=== PATIENT | male | born 1930 | race Caucasian/White ===

== ENCOUNTER 2017-04-18 21:53 | Emergency (ER) | payer MEDICARE, OTHER ==
[~2017-04-18] VITALS: Ht 165.1 cm; Wt 75.0 kg
[~2017-04-18 21:53] MED LIST: AMLO10TA3 PO; ATOR40TA69 PO; CAYE450C4 PO; CHOL10008 PO; DABI150C PO; DICL1ADH6 TD; DOXY100T2 PO; FURO-128 PO; HYDR-4003 PO; LEVO75TA4 PO; MULT-666 PO; NITR0.4T6 SL; OMEG-38 PO; POTA20TA16 PO
[2017-04-18 22:03] VITALS: BP 152/70; PULSE 70; RESP 17; O2SAT 98
[2017-04-19 00:04] LABS: BASOPHILS % (AUTO) 0.4 % (0-3); MONOCYTES % (AUTO) 16.2 % (4-12); Mean Corpuscular Hemoglobin 30.5 pg (27.0-35.0); Mean Corpuscular Volume 93.4 fL (81-100); NEUTROPHILS % (AUTO) 59.8 % (40-74); Platelet Count 310 bil/L (150-400)
[2017-04-19 00:27] LABS: INR 1.72 ratio
--- NOTE | 2017-04-19 00:39 | ED.REPORT ---
HPI-Extremity Problem Lower Date of Service Apr 19, 2017 ED Provider: Jerod Ron MD Pt is an 86 y/o male anticoagulated on Pradaxa w/ a hx of CHF, CAD, chronic a- fib, HTN, presenting to the ED c/o LLE edema onset today. The patient had a total hip replacement on 04/05 and began to experience LLE edema today with an acute blister on top of his toe. He also has chronic discoloration of his legs bilaterally with no obvious acute rash. Pt denies extremity pain, fever, chills , SOB, CP. The patient has compression stockings at home but does not wear them because they don't fit properly. He was on Lasix PRN but has been taking 40 mg daily for the past few days. Nursing Notes Stated Complaint: LEFT LEG SWELLING Chief Complaint: General Complaint Nursing Notes Reviewed: Yes Allergies: Coded Allergies: morphine (Verified Adverse Reaction, Intermediate, Nausea,Vomiting, ) Uncoded Allergies: NSAIDS (Adverse Reaction, Unknown, single kidney, 04/18/17) Scheduled Amlodipine (Amlodipine) 10 Mg Tablet 10 MG PO DAILY Atorvastatin Calcium (Atorvastatin Calcium) 40 Mg Tablet 40 MG PO DAILY Cayenne (Cayenne) 450 Mg Capsule 450 MG PO DAILY Cholecalciferol (Vitamin D3) (Vitamin D3) 1,000 Unit Tab.chew 1,000 UNIT PO DAILY Dabigatran Etexilate Mesylate (Pradaxa) 150 Mg Capsule 150 MG PO BID Diclofenac Epolamine (Flector) 1 Each Patch.td12 1 EACH TD DAILY Doxycycline Hyclate (Doxycycline Hyclate) 100 Mg Tablet 100 MG PO BID Levothyroxine (Levothyroxine) 75 Mcg Tablet 75 MCG PO QAM [place]-3/Dha/Epa/Fish Oil (Fish Oil 1,000 mg Softgel) 1 Each Capsule 1 EACH PO DAILY Potassium Chloride (Potassium Chloride) 20 Meq Tab.er.prt 20 MEQ PO PRN WITH LASIX TAKE WITH FOOD Scheduled PRN Furosemide (Lasix) 40 Mg Tablet MG PO MORNING PRN PRN For weight gain Hydrocodone-Acetaminophen 5-325 mg (Hydrocodone-Acetaminophen 5-325 mg) 1 Each Tablet 1 TABLET PO Q4H PRN PRN For Pain Nitroglycerin SL (Nitroglycerin SL) 0.4 Mg Tab.subl 0.4 MG SL PRN For Chest Pain Miscellaneous Medications Multivitamin (Once Daily) 1 Each Tablet 1 EACH PO General Time Seen by MD: 00:30 Chief Complaint Other (LLE edema) Hx Obtained From: Patient Arrived By: Wheelchair Onset Occurred: 5 - 8 hours ago Symptom Duration: Since onset Severity: Current: No pain currently Severity: Maximum: No pain Similar Sx Previous: No Past Medical History 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 Past Medical History Hypothyroid CVA 1993 CAD and [place] s/p CABG x1 CHF on Lasix Chronic a-fib on Pradaxa Hypertension Hyperlipidemia HEAVEN on CPAP Hx ulcer Chronic renal insufficiency AAA s/p repair Nocturia Cataracts 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 Respiratory: Denies: Non-productive cough, Shortness of breath Cardiovascular: Denies: Chest pain, Dyspnea on exertion GI: Denies: Abdominal pain, Nausea, Vomiting Physical Exam Initial Vital Signs Vital Signs (First) Date Time Temp Pulse Resp B/P Pulse Ox O2 Delivery O2 Flow Rate FiO2 04/18/17 22:03 36.8 70 17 152/70 98 Room Air Initial VS: Reviewed, Vital signs normal Head / Eyes: Atraumatic, Normocephalic, PERRL ENT: Mucous membranes moist, Conjunctiva normal, No scleral icterus Respiratory: Breath sounds normal, Clear to auscultation, No respiratory distress Abdomen / GI: Soft, No distention Upper Extremities: Vascular intact, Neuro intact, No swelling Skin: Warm, Dry, No cyanosis Neurologic: Alert, Oriented, Nonfocal Psychiatric: Mood/affect normal, Behavior normal, Normal thought content Lower Extremity / Pelvis / MS: Atraumatic, Full range of motion, No deformity, Neurologic intact, Vascular intact, No compartment syndrome Bronze edema bilaterally No warmth or significant areas of erythema Straw-colored fluid blister at base of 2nd toe on left foot. This was cultured. Pitting edema bilaterally worse on left - left is 4+ and right is 3+ General/Constitutional: Awake, Alert, No acute distress, Well appearing, Cooperative, Not toxic appearing Cardiovascular: Heart rate NL, Regular rhythm, Heart sounds NL, No gallop, No murmurs, No rubs, Cap refill not delayed, Peripheral circulation NL Lower Ext Edema: Positive: Left 4+, Pitting, Right 3+ Neck: Supple, Full range of motion, No JVD Interpretation & Diagnostics Lab Results Interpretation Result Diagram: 04/18/17 2350 04/18/17 2350 Test 04/18/17 23:50 04/19/17 00:15 White Blood Count 7.0th/mm3 (3.8-10.1) Red Blood Count 3.61mil/mm3 (4.40-5.80) Hemoglobin 11.0g/dL (13.8-17.2) Hematocrit 33.7% (41.0-50.0) Mean Corpuscular Volume 93.4fL (81-100) Mean Corpuscular Hemoglobin 30.5pg (27.0-35.0) Mean Corpuscular Hemoglobin Concent 32.6% (32.0-37.0) Red Cell Distribution Width 16.2% (12.3-15.4) Platelet Count 310bil/L (150-400) Neutrophils (%) (Auto) 59.8% (40-74) Lymphocytes (%) (Auto) 21.0% (14-46) Monocytes (%) (Auto) 16.2% (4-12) Eosinophils (%) (Auto) 2.0% (0-5) Basophils (%) (Auto) 0.4% (0-3) Prothrombin Time 18.6sec (8.1-12.5) Prothromb Time International Ratio 1.72ratio Sodium Level 136mEq/L (134-144) Potassium Level 3.8mEq/L (3.5-5.2) Chloride Level 94mEq/L (97-108) Carbon Dioxide Level 24mmol/L (18-29) Blood Urea Nitrogen 25mg/dL (8-27) Creatinine 1.55mg/dL (0.76-1.27) Estimat Glomerular Filtration Rate 46mL/min (>59) Glucose Level 98mg/dL (60-99) Calcium Level 9.2mg/dL (8.5-10.1) Magnesium Level 1.9mg/dL (1.6-2.6) Total Bilirubin 1.1mg/dL (0.0-1.2) Aspartate Amino Transf (AST/SGOT) 32U/L (0-50) Alanine Aminotransferase (ALT/SGPT) 18U/L (0-44) Alkaline Phosphatase 88U/L (25-160) Pro-B-Type Natriuretic Peptide 3994pg/mL (0-486) Total Protein 7.6g/dL (6.4-8.4) Albumin 3.8g/dL (3.4-5.0) Hold [place]man Top Tube Received (Received) Hold Urine Received (Received) Lab Results Interpretation: Mild chronic anemia, subtherapeutic INR X-Ray Chest Interpretation Chest Xray Interpretation: Cardiomegaly. No acute disease. View: Portable, 1 view Interpretation / Wet Read by: Interpret - Radiologist US Focused Lower Ext Venous Exam Performed by: Allied health pract Exam Interpreted by: Allied health pract, Radiologist Indication: Leg swelling left Interpretation: No evid deep vein thromb Re-Eval/Medical Decision Med Decision/Clinical Course 86-year-old male with recent hip surgery presents with bilateral edema, worse on the left leg. Ultrasound shows no evidence of DVT. He is on restrictions of flexing his hip because of the surgery and is having trouble elevating his legs as he usually does. He was fitted with RALPH hose. Increase Lasix to 80 mg daily for a few days. Follow-up with his regular doctor. Re-Evaluation/Progress : Time of Eval: 00:51 Re-Evaluation/Progress Note: Pt rechecked. Discussed lab and imaging results. Informed pt of plan for treatment. Pt understands and agrees with plan for treatment. F/U instructions and RTER warnings given. All questions addressed. Counseled Regarding: Diagnosis, Lab results, Need for follow-up, When/why to return to ED Discharge & Departure Impression: Primary Impression: Leg edema Laterality: bilateral Qualified Code: R60.0 - Localized edema Additional Impressions: Subtherapeutic international normalized ratio (INR) Status post hip surgery Disposition: Home Discharge Condition All VS Reviewed: Yes Condition: Stable Patient Instructions: Edema (ED) Additional Instructions: There is no evidence of a blood clot in the leg. It does not appear infected although the little area of redness on the ankle may indicate an early infection. The blister on the foot was cultured. Wear the RALPH hose as much as possible. Talk to your doctor about getting a more advanced pair of support hose. Increase your Lasix (furosemide) to 80 mg daily. Within the parameters of your hip bending restrictions, elevate your leg as much as possible. Referrals: Gonzalez Guzman MD (PCP) Scribe Attestation Portions of this note were transcribed by Jd Heller. I, Dr. Ron personally performed the history, physical exam and medical decision-making; I reviewed and confirmed the accuracy of the information in the transcribed note. Signed by Mina Yancey, 04/19/175 copies to: Gonzalez Guzman MD, Howard L MD Apr 19, 2017 00:39 JD HELLER Apr 19, 2017 00:45
[2017-04-19 00:46] LABS: Magnesium 1.9 mg/dL (1.6-2.6)
[2017-04-19 02:14] VITALS: BP 159/48; PULSE 99; RESP 17; O2SAT 99
--- NOTE | 2017-04-19 08:49 | DRSVH ---
PROCEDURE: X-RAY CHEST, TWO VIEWS ([id number]) INDICATIONS: SHORTNESS OF BREATH TECHNIQUE: 2 views of the chest were acquired. COMPARISON: [facility] , CHEST 2VW, 12/10/2013, 9:33. [facility], 03/19/2016, 11:42. FINDINGS: Surgical changes and devices: Postsurgical changes are redemonstrated in the mediastinum. Lungs and pleura: No pleural effusions or pneumothorax. There are linear opacities in the left lung base redemonstrated likely representing scarring. No acute consolidation. There is mild prominence of the right hilum which appears unchanged from the prior studies. Mediastinum: Mediastinal contours are unchanged. Heart size is at the upper limits of normal. Bones and chest wall: No suspicious bony abnormalities. Soft tissues appear unremarkable. IMPRESSION: 1. No definite acute cardiopulmonary disease. Dictated by: Alonzo Berry M.D. on 04/19/2017 at 8:43 Approved by: Alonzo Berry M.D. on 04/19/2017 at 8:48
--- NOTE | 2017-04-19 08:54 | DRSVH ---
PROCEDURE: US VEINOUS LEG DUPLEX UNILATERAL, LEFT INDICATIONS: edema post op TECHNIQUE: Real-time imaging, as well as color and pulse Doppler interrogation, were performed of the lower extr emity deep veins from the inguinal ligament to the popliteal fossa. COMPARISON: None. FINDINGS: The deep veins are normally compressible, and free of intraluminal thrombus. Color and pu lse Doppler demonstrate normal phasic intraluminal flow. There is normal augmentation response to di stal compression maneuver. IMPRESSION: 1. No evidence of deep venous thrombosis in the left lower extremity. Dictated by: Alonzo Berry M.D. on 04/19/2017 at 8:53 Approved by: Alonzo Berry M.D. on 04/19/2017 at 8:53
== END 2017-04-19 02:16 | disposition home or self-care (01) ==
LOC: SED 21:53
DX: R60.0 Localized edema (principal); R79.1 Abnormal coagulation profile; I11.0 Hypertensive heart disease with heart failure; I50.9 Heart failure, unspecified; I25.10 Atherosclerotic heart disease of native coronary artery without angina pectoris; I48.91 Unspecified atrial fibrillation; I25.2 Old myocardial infarction; E78.5 Hyperlipidemia, unspecified; E03.9 Hypothyroidism, unspecified; G47.33 Obstructive sleep apnea (adult) (pediatric); Z98.890 Other specified postprocedural states; Z86.73 Personal history of transient ischemic attack (TIA), and cerebral infarction without residual deficits; Z88.5 Allergy status to narcotic agent

== ENCOUNTER 2017-07-13 15:36 | Observation (INO) | payer MEDICARE, OTHER ==
[~2017-07-13] VITALS: Ht 167.6 cm; Wt 79.5 kg
[2017-07-13] VITALS (8 sets, daily range): BP systolic 145–167; BP diastolic 45–71; PULSE 53–66; RESP 14–20; O2SAT 93–99
[~2017-07-13 15:36] MED LIST changes: +NITR0.4T38 SL; -NITR0.4T6 SL
--- NOTE | 2017-07-13 15:50 | ED.REPORT ---
HPI-General Illness Date of Service Jul 13, 2017 ED Provider: Clif Adame MD Mr. Sal is a 86-year-old male with a history of iron deficiency anemia presents to the ED for black stools. Patient had one episode of black stools 4 days ago. Patient is seen at [facility] medicine clinic or he was told to have a positive stool guaiac. Associated symptoms of fatigue and shortness of breath. Patient denies any chest pain, nausea or vomiting, hematochezia, or abdominal pain. Patient has had multiple transfusions for his anemia in the past. They have never discovered the cause of his iron deficiency anemia. He is scheduled for an iron transfusion in 5 days. His last iron transfusion was November 2016. He had a colonoscopy and endoscopy of March 2016 which were normal, no signs of bleeding. 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 NOT USE, 07/13/17) Scheduled Amlodipine (Amlodipine) 10 Mg Tablet 10 MG PO QAM Atorvastatin Calcium (Atorvastatin Calcium) 40 Mg Tablet 40 MG PO HS Cayenne (Cayenne) 450 Mg Capsule 450 MG PO QAM Cholecalciferol (Vitamin D3) (Vitamin D3) 1,000 Unit Tab.chew 1,000 UNIT PO BID Doxycycline Hyclate (Doxycycline Hyclate) 100 Mg Tablet 100 MG PO BID Fluticasone Propionate (Fluticasone Propionate) 50 Mcg/Actuation [place].susp 1 SPRAY NS QAM Hydrocodone-Acetaminophen 5-325 mg (Hydrocodone-Acetaminophen 5-325 mg) 1 Each Tablet 1 TABLET PO TID Levothyroxine (Levothyroxine) 75 Mcg Tablet 75 MCG PO QAM Multivitamin (Once Daily) 1 Each Tablet 1 EACH PO DAILYWD [place]-3/Dha/Epa/Fish Oil (Fish Oil 1,000 mg Softgel) 1 Each Capsule 1 EACH PO BID Scheduled PRN Furosemide (Lasix) 40 Mg Tablet 40 MG PO DAILY PRN PRN EDEMA Nitroglycerin SL (Nitroglycerin SL) 0.4 Mg Tab.subl 0.4 MG SL PRN For Chest Pain Potassium Chloride (Potassium Chloride) 20 Meq Tab.er.prt 20 MEQ PO DAILY PRN PRN IF LASIX USED TAKE WITH FOOD Triamcinolone Acet (Triamcinolone Acetonide Cream) 1 Applic/0.25 Gm Cr 1 APPLIC EXT BID PRN PRN RASH General Time Seen by MD: 15:46 Chief Complaint Other Melena stools, fatigue Hx Obtained From: Patient, Spouse Sudden in Onset?: No Onset Occurred: 4 days ago Symptom Duration: Constant Severity: Current: No pain currently Associated with: Reports: Shortness of breath Pertinent Negative: Pt denies other symptoms Past Medical History 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 Medical History Hypothyroid CVA 1993 CAD and [place] s/p CABG x1 CHF on Lasix Chronic a-fib on Pradaxa Hypertension Hyperlipidemia HEAVEN on CPAP Hx ulcer Chronic renal insufficiency AAA s/p repair Nocturia Cataracts Chronic discoloration of lower extremities bilaterally Chronic doxycycline use Past Surgical History CABG x2 Abdominal aortic aneurysm repair with incidental nephrectomy Bilateral kene replacement Shoulder Hip Smoking History Former Smoker Social History Alcohol Use: Denies alcohol use Drug Use: Denies drug use Other Social History: Good social support, Ambulatory Status Independent Review of Systems Full Review of Systems Constitutional: Reports: Fatigue, Denies: Chills, Fever Respiratory: Reports: Shortness of breath, Denies: Dyspnea on exertion Cardiovascular: Denies: Chest pain, Syncope GI: Reports: Melena, Denies: Abdominal pain, Hematemesis, Hematochezia, Nausea, Vomiting Male: Denies Dysuria Complete sys rev & neg: except as marked. Physical Exam Vital Signs Vital Signs Date Time Temp Pulse Resp B/P Pulse Ox O2 Delivery O2 Flow Rate FiO2 07/13/17 17:16 53 16 148/45 99 Room Air 07/13/17 15:42 35.8 66 16 150/57 99 General/Constitutional: Well-developed, Well-nourished Head / Eyes: Atraumatic, Normocephalic, PERRL ENT: Mucous membranes moist, Conjunctiva normal, No scleral icterus Neck: Supple, Non-tender, Full range of motion Respiratory: Breath sounds normal, Clear to auscultation, No respiratory distress Cardiovascular: Regular rate & rhythm, Heart sounds normal, Intact distal pulses Abdomen / GI: Soft, Non-tender, No guarding, No rebound, No distention Back: No CVA tenderness Extremities: Vascular intact, Neuro intact, No swelling, No tenderness Skin: Warm, Dry, No cyanosis Neurologic: Alert, Oriented, Nonfocal Psychiatric: Mood/affect normal, Behavior normal, Normal thought content Interpretation & Diagnostics Lab Results Interpretation Result Diagram: 07/14/17 0747 07/13/17 1616 Test 07/13/17 16:16 White Blood Count 4.7th/mm3 (3.8-10.1) Red Blood Count 2.34mil/mm3 (4.40-5.80) Mean Corpuscular Volume 94.4fL (81-100) Mean Corpuscular Hemoglobin 28.2pg (27.0-35.0) Mean Corpuscular Hemoglobin Concent 29.9% (32.0-37.0) Red Cell Distribution Width 15.0% (12.3-15.4) Platelet Count 214bil/L (150-400) Neutrophils (%) (Auto) 48.1% (40-74) Lymphocytes (%) (Auto) 33.6% (14-46) Monocytes (%) (Auto) 13.8% (4-12) Eosinophils (%) (Auto) 3.6% (0-5) Basophils (%) (Auto) 0.9% (0-3) Prothrombin Time 11.3sec (8.1-12.5) Prothromb Time International Ratio 1.05ratio Sodium Level 141mEq/L (134-144) Potassium Level 3.9mEq/L (3.5-5.2) Chloride Level 105mEq/L (97-108) Carbon Dioxide Level 21mmol/L (18-29) Blood Urea Nitrogen 29mg/dL (8-27) Creatinine 1.35mg/dL (0.76-1.27) Estimat Glomerular Filtration Rate 54mL/min (>59) Glucose Level 111mg/dL (60-99) Calcium Level 8.9mg/dL (8.5-10.1) Total Bilirubin 0.3mg/dL (0.0-1.2) Aspartate Amino Transf (AST/SGOT) 19U/L (0-50) Alanine Aminotransferase (ALT/SGPT) 14U/L (0-44) Alkaline Phosphatase 83U/L (25-160) Total Protein 6.6g/dL (6.4-8.4) Albumin 3.8g/dL (3.4-5.0) Hold [place] Top Tube Received (Received) Re-Eval/Medical Decision Med Decision/Clinical Course is a 86-year-old male with a history of iron deficiency anemia. Labs reveal a hemoglobin of 6.6. Patient is symptomatic with fatigue and shortness of breath. Hospitalist was consulted. Treatment was initiated. Type and cross, 2 units packed red blood cells. Discharge & Departure Primary Impression: Symptomatic anemia Disposition: ADMITTED TO HOSPITAL Discharge Condition All VS Reviewed: Yes Condition: Stable Patient Instructions: Anemia (ED) Additional Instructions: H and is being admitted to the hospital for transfusion. Referrals: Gonzalez Guzman MD (PCP) EDSupervising Provider for APC: Clif Adame MD Attending Statement I discussed case with resident Dr. Avery and I evaluated the patient independently and agree with plan as above. In brief, 86-year-old male history of chronic iron deficiency anemia with excessive work up to identify the source unsuccessfully. Negative colonoscopies and endoscopies in the past. Presenting with him by primary physician for lab draw. His hemoglobin is 6.6. Does report some dark stools last couple days though he is guaiac negative in the ER. He will be admitted for blood transfusion. Clif Adame MD Jul 13, 2017 15:50 Josi Avery DO Jul 13, 2017 17:21
[2017-07-13 16:31] LABS: BASOPHILS % (AUTO) 0.9 % (0-3); EOSINOPHILS % (AUTO) 3.6 % (0-5); MONOCYTES % (AUTO) 13.8 % (4-12); Mean Corpuscular Hemoglobin 28.2 pg (27.0-35.0); Mean Corpuscular Volume 94.4 fL (81-100); NEUTROPHILS % (AUTO) 48.1 % (40-74); Platelet Count 214 bil/L (150-400)
[2017-07-13 16:42] LABS: INR 1.05 ratio
[2017-07-13] MEDS ORDERED: KEN25CR EXT (17:18)
[2017-07-13] MEDS ORDERED: FLUT15.88 NS (17:18)
[2017-07-13] MEDS ORDERED: Polyethylene Glycol (PEG) 17 Gm Powder PO PRN (17:30)
[2017-07-13] MEDS ORDERED: Alum-Mag Hydrox-Simeth 30 mL Suspension PO PRN (17:35)
[2017-07-13] MEDS ORDERED: Ondansetron 2 mg/mL 2 mL Inj IVPUSH PRN (17:35)
--- NOTE | 2017-07-13 17:39 | PCM.HPMED ---
Subjective Date of Service Jul 13, 2017 Primary Provider: Admitting Physician: Primary Care Physician: Praveena Dover MD Attending Physician: Chief Complaint: Generalized weakness, dizziness History of Present Illness: This is a 86-year-old male with a past medical history of coronary artery disease, status post CABG in 1990, paroxysmal atrial fibrillation, was on pPradaxa which was discontinued secondary to chronic anemia and the need for blood transfusion and iron replacement, history of abdominal aortic aneurysm, status post repair in 2004, recent left hip replacement, on continuing his antibiotic therapy with doxycycline 100 mg twice a day, Hx of HTN, hypothyroidism, chronic anemia of unclear etiology for which she was evaluated in outpatient settings (needs RBC transfusions and iron infusions from time to time). Today patient presented to the emergency department with generalized weakness, fatigue and subjective shortness of breath, dizziness. His hemoglobin was 6.6. Emergency department physician asked hospitalist service to admit the patient to the hospital for RBC transfusion in the settings of symptomatic anemia. Stool for fecal occult blood was negative for blood. I discussed with the patient risks of blood product transfusions as severe allergic reactions, lung damage, hepatitis B, C, HIV. Patient was aware about possible complications from blood product transfusions. He consented to blood product transfusions. We will transfuse him with 2 units of blood. Review of Systems: REVIEW OF SYSTEMS: GENERAL: + malaise, no fevers., SEE HPI HEENT: Negative for frequent or significant headaches All other reviewed and negative other than HPI. 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 EYES: SPEEDY, EOMI, anicteric, able to fully open and close eyelids SKIN: Skin color normal, turgor normal. No visible rashes or lesions. EAR, NOSE, MOUTH, THROAT: Lips, oral mucosa, tongue gums, oropharynx are moist , pink, no lesions. Ears normal appearance, no lesions. NECK: no jugulovenous distention; supple ROM normal. RESPIRATORY: Lungs clear to auscultation. Good diaphragmatic excursion. CARDIAC: normal S1 and S2; no rubs, murmurs, or gallops; regular rate and rhythm ABDOMEN: Abdomen soft, non-tender. BS normal. No masses or organomegaly. MUSCULOSKELETAL: ROM full, muscles are not tender EXTREMITIES: no pitting edema in LE, no new deformities or skin discoloration. NEURO: Alert, oriented X 3, Sensation grossly intact., Cranial nerves II-XII intact, Grossly normal motor function. PULSES: 2+ radial, 2+ carotid Lab and Diagnostics Result Diagram: 07/13/17161507/13/171615 Assessment & Plan This is a 86-year-old male with a past medical history of coronary artery disease, status post CABG in 1990, paroxysmal atrial fibrillation, was on pPradaxa which was discontinued secondary to chronic anemia and the need for blood transfusion and iron replacement, history of abdominal aortic aneurysm, status post repair in 2004, recent left hip replacement, on continuing his antibiotic therapy with doxycycline 100 mg twice a day, Hx of HTN, hypothyroidism, chronic anemia of unclear etiology for which she was evaluated in outpatient settings (needs RBC transfusions and iron infusions from time to time). Today patient presented to the emergency department with generalized weakness, fatigue and subjective shortness of breath, dizziness. His hemoglobin was 6.6. Emergency department physician asked hospitalist service to admit the patient to the hospital for RBC transfusion in the settings of symptomatic anemia. Stool for fecal occult blood was negative for blood. I discussed with the patient risks of blood product transfusions as severe allergic reactions, lung damage, hepatitis B, C, HIV. Patient was aware about possible complications from blood product transfusions. He consented to blood product transfusions. We will transfuse him with 2 units of blood. Symptomatic iron deficiency anemia - Hemoglobin 6.6 - Transfuse 2 units of RBC - Monitor - Continue outpatient workup after discharge Hypertension - Stable - Resume home meds Paroxysmal atrial fibrillation - Stable - Resume home meds Hyperlipidemia - Stable - Resume home meds Hypothyroidism - Stable - Continue his home meds DVT PROPHYLAXIS: Sequential compression devices Code status: Patient would like to be full code Disposition: discharge after patient improves. Plan of care discussed with ED physician; Labs, radiology tests reviewed. Plan of care, medication side effects, home medication, diagnostic procedures and available alternatives were discussed and reviewed with patient/family. All questions answered. Patient/family verbalized understanding, approved and agreed to plan of care. Vince Dexter MD Jul 13, 2017 17:39
[2017-07-13] MEDS ORDERED: 0.9% Sodium Chloride 250 ML IV SCH (17:55)
[2017-07-13] MEDS ORDERED: Potassium Chloride 20 mEq SR Tablet PO PRN (17:55)
--- NOTE | 2017-07-13 18:29 | NUR ---
Arrival to Floor from ER Patient arrived to floor via ER stretcher, patient was able to stand and ambulate to bed. Patient Addendum: 07/13/17 at 1831 by MADELAINE PHILIP RN Patient's pants were removed, which revealed dark discoloration from the knee down. Patient does have a history of chronic anemia and cardiovascular issues. Admit nurse present in room conducting admission. Patient comfortable and resting in bed, oriented to room.
--- NOTE | 2017-07-13 18:50 | NUR ---
Diet Paged Dr. Dexter at [phone] to follow up on diet, patient does not understand why he is currently NPO. Dr. Dexter has entered Heart Healthy diet for tomorrow, but current active diet is NPO>
[2017-07-13] MEDS: HYDROcodone-APAP 5-325 mg Tablet PO SCH (20:30)
[2017-07-13] MEDS ORDERED: _Doxycycline 100 mg Tablet PO SCH (20:30)
[2017-07-13] MEDS ORDERED: _HYDROcodone/APAP 5-325 mg Tablet PO SCH (20:30)
[2017-07-13] MEDS: Omega-3 Fatty Acids 1,000 mg Capsule PO SCH (20:57)
[2017-07-14 00:58] VITALS: BP 161/76; PULSE 72; RESP 16
[2017-07-14 01:23] VITALS: BP 150/58; PULSE 61; RESP 16
[2017-07-14 03:50] VITALS: BP 159/74; PULSE 73; RESP 16
[2017-07-14 04:11] LABS: APPEARANCE,URINE CLEAR (CLEAR,HAZY); COLOR,URINE YELLOW (YELLOW); OCCULT BLOOD,URINE NEGATIVE (NEGATIVE); UROBILINOGEN,URINE NORMAL (NORMAL)
--- NOTE | 2017-07-14 04:53 | NUR ---
Blood admin Pt. received 2 units of PRBCs during this shift, and tolerated it well. Vital signs stable. Pt. denies any adverse reaction to blood admin. Will continue to monitor.
[2017-07-14 05:09] VITALS: BP 163/78; PULSE 67; RESP 20; O2SAT 99
[2017-07-14] MEDS: Omega-3 Fatty Acids 1,000 mg Capsule PO SCH (07:38)
--- NOTE | 2017-07-14 08:11 | PCM.DIMED ---
Discharge Instructions Date of Service Jul 14, 2017 Dates of Hospitalization Jul 13, 2017 at 17:30 Discharge Diagnosis Discharge Diagnosis Symptomatic Iron deficiency anemia A-fib, paroxysmal, HTN Hypothyroidism HLP Diet Discharge Diet: Low fat, Low Sodium, Heart Healthy Activity Discharge Activity: Other (Avoid heavy physical work or exertion ) Call your provider Call your provider for: Fever or Chills, Shortness of breath, Bleeding, Chest pain, Vomitting, Excessive diarrhea, Weakness (unilateral) Patient Instructions Follow-up plan Follow up with PCP and Finance Intern in 2-3 days after discharge. Vince Dexter MD Jul 14, 2017 08:11
[2017-07-14] MEDS: HYDROcodone-APAP 5-325 mg Tablet PO SCH (08:30)
[2017-07-14] MEDS ORDERED: Fluticasone 0.05% 15 Spray/2 Gm 16 Gm Nasal Spray NASAL SCH (08:30)
--- NOTE | 2017-07-14 10:11 | PCM.DC.MED ---
Discharge Summary Date of Service Jul 14, 2017 Dates of Hospitalization Date of Hospital Admission Jul 13, 2017 at 17:30 Date of Discharge: Jul 14, 2017 Providers: Admitting Physician: Vince Dexter MD Primary Care Physician: Praveena Dover MD Attending Physician: Vince Dexter MD Diagnosis at Time of Discharge Diagnosis at Time of Discharge Symptomatic Iron deficiency anemia A-fib, paroxysmal, HTN Hypothyroidism HLP Hospital Course This is a 86-year-old male with a past medical history of coronary artery disease, status post CABG in 1990, paroxysmal atrial fibrillation, was on Pradaxa which was discontinued secondary to chronic anemia and the need for blood transfusion and iron replacement, history of abdominal aortic aneurysm, status post repair in 2004, recent left hip replacement, on continuing his antibiotic therapy with doxycycline 100 mg twice a day, Hx of HTN, hypothyroidism, chronic anemia of unclear etiology for which he was evaluated in outpatient settings (needs RBC transfusions and iron infusions from time to time). Patient presented to the emergency department with generalized weakness , fatigue and subjective shortness of breath, dizziness. His hemoglobin was 6.6. Emergency department physician asked hospitalist service to admit the patient to the hospital for RBC transfusion in the settings of symptomatic anemia. Stool for fecal occult blood was negative for blood. I discussed with the patient risks of blood product transfusions as severe allergic reactions, lung damage, hepatitis B, C, HIV. Patient was aware about possible complications from blood product transfusions. He consented to blood product transfusions. He received 2 units of RBC. Patient was seen and examined on the day of discharge. After patient improved he was discharged home with recommendation to follow up with his PCP and GI for further management of his medical problems. Patient has an appointment with GI on Sun. Patient Condition @ Discharge: good Discharge Disposition: home Discharge Activity: resume regular activity, patient was advised to avoid heavy physical work or exertion Discharge Diet: regular diet, heart healthy, low fat, low salt, high fiber Information Provided to Patient: information about discharge medications Discharge Medications: I discussed with patient medication dosage, usage, goals of therapy, side effects, alternatives. During discharge patient was allert, oriented, able to make own informed decisions. We discussed possible severe side effects, adverse reactions, benefits, risks, alternatives of current and newly prescribed medications and diagnostic procedures. Patient verbalized understanding and agreed to current plan of care and discharge. TIME SPENT IN DISCHARGE ACTIVITY: activity greater then 30 minutes spent in discharge activity. 1. Discussed with patient/ family re: discharge plan of care/treatment, and follow up care/services. 2. Patient/family agreed with discharge plan and further plan of care, all questions were answered/addressed, no further questions at the time of discharge. Exam Vital Signs (Last) Date Time Temp Pulse Resp B/P Pulse Ox O2 Delivery O2 Flow Rate FiO2 07/14/17 07:44 CPAP/BIPAP 07/14/17 05:09 36.7 67 20 163/78 99 Test 07/13/17 16:16 07/14/17 03:50 07/14/17 07:47 White Blood Count 4.7th/mm3 (3.8-10.1) Red Blood Count 2.34mil/mm3 (4.40-5.80) Mean Corpuscular Volume 94.4fL (81-100) Mean Corpuscular Hemoglobin 28.2pg (27.0-35.0) Mean Corpuscular Hemoglobin Concent 29.9% (32.0-37.0) Red Cell Distribution Width 15.0% (12.3-15.4) Platelet Count 214bil/L (150-400) Neutrophils (%) (Auto) 48.1% (40-74) Lymphocytes (%) (Auto) 33.6% (14-46) Monocytes (%) (Auto) 13.8% (4-12) Eosinophils (%) (Auto) 3.6% (0-5) Basophils (%) (Auto) 0.9% (0-3) Prothrombin Time 11.3sec (8.1-12.5) Prothromb Time International Ratio 1.05ratio Sodium Level 141mEq/L (134-144) Potassium Level 3.9mEq/L (3.5-5.2) Chloride Level 105mEq/L (97-108) Carbon Dioxide Level 21mmol/L (18-29) Blood Urea Nitrogen 29mg/dL (8-27) Creatinine 1.35mg/dL (0.76-1.27) Estimat Glomerular Filtration Rate 54mL/min (>59) Glucose Level 111mg/dL (60-99) Calcium Level 8.9mg/dL (8.5-10.1) Total Bilirubin 0.3mg/dL (0.0-1.2) Aspartate Amino Transf (AST/SGOT) 19U/L (0-50) Alanine Aminotransferase (ALT/SGPT) 14U/L (0-44) Alkaline Phosphatase 83U/L (25-160) Total Protein 6.6g/dL (6.4-8.4) Albumin 3.8g/dL (3.4-5.0) Hold [place] Top Tube Received (Received) Urine Color Yellow (YELLOW) Urine Appearance Clear (CLEAR,HAZY) Urine pH 6.0 (5.0-8.0) Urine Specific [place] 1.015 (1.003-1.035) Urine Protein Negativemg/dL (NEG,TRACE) Urine Glucose (UA) Negativemg/dL (NEGATIVE) Urine Ketones Negativemg/dL (NEGATIVE) Urine Occult Blood Negative (NEGATIVE) Urine Nitrite Negative (NEGATIVE) Urine Bilirubin Negative (NEGATIVE) Urine Urobilinogen Normalmg/dL (NORMAL) Urine Leukocyte Esterase Negative (NEGATIVE) Urine RBC 0-2/hpf (0-2) Urine WBC 0-5/hpf (0-5) Urine Epithelial Cells Occasional/hpf (NONE-MOD) Urine Crystals None seen (NONE SEEN) Urine Bacteria None/hpf (NONE-FEW) Urine Hyaline Casts None/lpf (NONE) Urine Granular Casts None seen (NONE SEEN) Urine Waxy Casts None seen (NONE SEEN) Urine Red Blood Cell Casts None seen (NONE SEEN) Urine White Blood Cell Casts None seen (NONE SEEN) Urine Mucus None seen (None Seen) Urine Trichomonas None seen (NONE SEEN) Urine Yeast None (NONE SEEN) Urinalysis Comment None Urine Culture Reflexed Not indicated Hemoglobin 8.6g/dL (13.8-17.2) Hematocrit 26.9% (41.0-50.0) Discharge Medications Discharge Medications Amlodipine (Amlodipine) 10 Mg Tablet 10 MG PO QAM (Reported) Atorvastatin Calcium (Atorvastatin Calcium) 40 Mg Tablet 40 MG PO HS (Reported) Cayenne (Cayenne) 450 Mg Capsule 450 MG PO QAM (Reported) Cholecalciferol (Vitamin D3) (Vitamin D3) 1,000 Unit Tab.chew 1,000 UNIT PO BID (Reported) Doxycycline Hyclate (Doxycycline Hyclate) 100 Mg Tablet 100 MG PO BID (Reported ) Fluticasone Propionate (Fluticasone Propionate) 50 Mcg/Actuation Paulina.susp 1 SPRAY NS QAM (Reported) Hydrocodone-Acetaminophen 5-325 mg (Hydrocodone-Acetaminophen 5-325 mg) 1 Each Tablet 1 TABLET PO TID (Reported) Levothyroxine (Levothyroxine) 75 Mcg Tablet 75 MCG PO QAM (Reported) Multivitamin (Once Daily) 1 Each Tablet 1 EACH PO DAILYWD (Reported) [place]-3/Dha/Epa/Fish Oil (Fish Oil 1,000 mg Softgel) 1 Each Capsule 1 EACH PO BID (Reported) As needed Furosemide (Lasix) 40 Mg Tablet 40 MG PO DAILY PRN PRN EDEMA (Reported) Nitroglycerin SL (Nitroglycerin SL) 0.4 Mg Tab.subl 0.4 MG SL PRN For Chest Pain (Reported) Potassium Chloride (Potassium Chloride) 20 Meq Tab.er.prt 20 MEQ PO DAILY PRN PRN IF LASIX USED (Reported) TAKE WITH FOOD Triamcinolone Acet (Triamcinolone Acetonide Cream) 1 Applic/0.25 Gm Cr 1 APPLIC EXT BID PRN PRN RASH (Reported) Followup Plan Follow-up plan Follow up with PCP and Reinforcing Metal Worker in 2-3 days after discharge. Discharge Diet: Low fat, Low Sodium, Heart Healthy Discharge Activity: Other (Avoid heavy physical work or exertion ) Vince Dexter MD Jul 14, 2017 10:11
--- NOTE | 2017-07-14 11:10 | NUR ---
Discharge Note Patient discharged, family here to transport home. IV catheter x 1 removed. Discharge instructions/medications discussed & understood by spouse. All items gathered, nothing left behind. Upcoming appt for iron infusion at [facility] on Sunday & GRETCHEN Deluna, spouse to make appt for PCP on Sunday. Patient transported out via wheelchair by [employer].
--- NOTE | 2017-07-14 13:24 | NUR ---
Social Work: Attempted Initial Assessment/Discharge/Multidisciplinary Rounds D: EMR reviewed. Pt is an 86 y/o male admitted [facility] - no readmit risk score assigned - for anemia per H&P. Pt's insurance is Medicare and [facility] Supplemental. PCP is Praveena Dover MD. Pt's NOK is spouse Jolynn Sal ([phone]). SW attempted to meet with pt to conduct initial assessment but pt discharged prior to assessment. Pt discussed in multidisciplinary rounds and is medically stable for discharge home today. SW spoke to RN who confirmed there were no needs indicated and pt's son provided transport home. Per RN, pt and pt's son did not have any concerns about discharge. No SW needs identified, no MD orders received. A: Pt who is independent at baseline P: Pt discharged home with son via POV today. SW attempted to conduct initial assessment but pt discharged prior to being seen by SW. SW confirmed with RN that pt and family did not have any concerns regarding discharge. Pt has upcoming appointment for Iron infusion and GI MD at [facility] on 07/16. Spouse confirmed he will schedule appointment for PCP on Sunday as pt's listed PCP no longer follows pt. No SW needs identified, no MD orders received. LAUREL Casas
== END 2017-07-14 10:48 | disposition home or self-care (01) ==
LOC: SED 15:36 → OSC 17:30
PROVIDERS: ADMIT Internal Medicine; ATTEND Internal Medicine
DX: D50.9 Iron deficiency anemia, unspecified (principal); E03.9 Hypothyroidism, unspecified; I25.10 Atherosclerotic heart disease of native coronary artery without angina pectoris; I25.2 Old myocardial infarction; I11.0 Hypertensive heart disease with heart failure; I50.9 Heart failure, unspecified; G47.33 Obstructive sleep apnea (adult) (pediatric); I48.0 Paroxysmal atrial fibrillation; Z96.642 Presence of left artificial hip joint; Z95.1 Presence of aortocoronary bypass graft; Z90.5 Acquired absence of kidney; Z87.891 Personal history of nicotine dependence
CPT/HCPCS: 36415; 36430; 80053; 81000; 85014; 85018; 85025; 85610; 86922; 93005; 99285; G0378; P9021